=== PATIENT | male | born 1950 | race Caucasian/White ===

== ENCOUNTER 2022-01-27 18:10 | Observation (INO) | payer OTHER ==
[2022-01-27] MEDS ORDERED: VANCOMYCIN 1 GM in D5W (PRE-DOCKED) 1,000 MG/250 ML IVPB ONE (21:31)
[2022-01-27 22:54] LABS: BASO % 1.1 % (0-2.0); EOS % 2.6 % (0-4.5); HEMATOCRIT 46.7 % (35.4-49); HEMOGLOBIN 14.7 GM/dL (11.7-16.9); MCH 30.4 pg (25.7-33.7); MCHC 31.5 g/dl (32.0-35.9); MEAN CELL VOLUME 96.6 fl (80-96); MEAN PLT VOLUME 8.5 fl (7.5-11.1); MONO % 8.9 % (3.8-10.2); NEUT % 72.4 % (42.8-82.8); PLATELET COUNT 215 10^3/uL (134-434); RBC 4.83 M/mm3 (4.00-5.60); RDW 15.8 % (11.9-15.9); WHITE BLOOD COUNT 6.8 K/mm3 (4.0-10.0)
[2022-01-27] MEDS ORDERED: VANCOMYCIN/WATER FOR INJ (PEG) 1,000 MG/200 ML BAG IVPB ONE (23:10)
[2022-01-27 23:15] LABS: CALCIUM 8.9 mg/dL (8.5-10.1)
[2022-01-27 23:16] LABS: ALBUMIN 2.9 g/dl (3.4-5.0); BLOOD UREA NITROGEN 51.1 mg/dL (7-18)
[2022-01-27 23:19] LABS: CREATININE 4.5 mg/dL (0.55-1.3)
[2022-01-27 23:20] LABS: BILIRUBIN,TOTAL 0.6 mg/dL (0.2-1); TOT PROT 7.3 g/dl (6.4-8.2)
[2022-01-28] MEDS ORDERED: PIPERACILLIN/TAZOB 2.25 GM 2.25 GM in DEXTROSE 5%-WATER - 50 ML IVPB ONE (00:06)
[2022-01-28] MEDS ORDERED: PIPERACILLIN/TAZOB 2.25 GM 2.25 GM/50 ML BAG IVPB ONE ×2 (00:28→11:30)
[2022-01-28 08:16] LABS: BASO % 0.8 % (0-2.0); EOS % 4.1 % (0-4.5); HEMATOCRIT 41.3 % (35.4-49); HEMOGLOBIN 12.9 GM/dL (11.7-16.9); LYMPH % 17.3 % (8-40); MCH 30.3 pg (25.7-33.7); MCHC 31.3 g/dl (32.0-35.9); MEAN CELL VOLUME 96.7 fl (80-96); MEAN PLT VOLUME 8.3 fl (7.5-11.1); MONO % 9.2 % (3.8-10.2); NEUT % 68.6 % (42.8-82.8); PLATELET COUNT 205 10^3/uL (134-434); RBC 4.27 M/mm3 (4.00-5.60); RDW 15.4 % (11.9-15.9); WHITE BLOOD COUNT 5.7 K/mm3 (4.0-10.0)
[2022-01-28 08:44] LABS: ALBUMIN 2.3 g/dl (3.4-5.0); BLOOD UREA NITROGEN 53.7 mg/dL (7-18); CALCIUM 8.1 mg/dL (8.5-10.1)
[2022-01-28 08:46] LABS: CREATININE 4.5 mg/dL (0.55-1.3)
[2022-01-28 08:47] LABS: TOT PROT 5.9 g/dl (6.4-8.2)
[2022-01-28 08:48] LABS: BILIRUBIN,TOTAL 0.6 mg/dL (0.2-1)
[2022-01-28] MEDS ORDERED: ARTIFICIAL TEARS (POLYVINYL ALCOHOL) OPTH DROPS OU PRN (10:07)
[2022-01-28] MEDS ORDERED: ACETAMINOPHEN 325 MG TABLET (FP) PO PRN (10:14)
[2022-01-28] MEDS ORDERED: PIPERACILLIN/TAZOB 2.25 GM 2.25 GM in DEXTROSE 5%-WATER - 50 ML IVPB SCH ×2 (10:15→11:00)
[2022-01-28] MEDS ORDERED: oxyCODONE HCL 5 MG TABLET PO PRN (10:16)
[2022-01-28] MEDS ORDERED: SENNOSIDES/DOCUSATE COMBO (SENNA PLUS) TABLET (UD) PO PRN (10:20)
[2022-01-28] MEDS ORDERED: LEVOTHYROXINE NA 125 MCG TABLET (FP) PO ONE (10:22)
[2022-01-28] MEDS ORDERED: APIXABAN 2.5 MG TABLET ONE (11:29)
[2022-01-28] MEDS: AMIODARONE HCL 200 MG TABLET PO SCH (11:30)
[2022-01-28] MEDS ORDERED: AMIODARONE HCL 200 MG TABLET ONE (11:30)
[2022-01-28] MEDS: APIXABAN 2.5 MG TABLET PO SCH ×2 (11:30→21:29)
[2022-01-28] MEDS ORDERED: LEVOTHYROXINE NA 25 MCG TABLET (FP) ONE (11:31)
[2022-01-28] MEDS ORDERED: LEVOTHYROXINE NA 50 MCG TABLET (FP) ONE (11:32)
[2022-01-28] MEDS: INSULIN SLIDING SCALE (NOVOLOG) 1 VIAL SQ SCH ×3 (12:15→21:28)
[2022-01-28] MEDS: COLLAGENASE CLOSTRIDIUM HIST. 30 GRAMS TUBE TP SCH (12:24)
[2022-01-28] MEDS: VITAMIN B COMP W-C 1 EA TABLET (NEPHRO-VITE) PO SCH ×2 (12:24→15:33)
[2022-01-28] MEDS: NYSTATIN 100,000 UNIT/GM TOPICAL CREAM 15 GM TUBE TP SCH ×2 (12:24→21:32)
[2022-01-28] MEDS: MIDODRINE HCL 5 MG TABLET PO SCH ×2 (15:33→17:40)
[2022-01-28] MEDS ORDERED: INSULIN (NOVOLOG) ASPART 100 UNITS/ML 10ML VIAL ONE (17:33)
[2022-01-28] MEDS: PREGABALIN 25 MG CAPSULE PO SCH (21:29)
[2022-01-28] MEDS ORDERED: ZOLPIDEM TARTRATE 5 MG TABLET PO PRN (22:00)
[2022-01-29] MEDS: INSULIN SLIDING SCALE (NOVOLOG) 1 VIAL SQ SCH ×4 (06:28→22:04)
[2022-01-29] MEDS: LEVOTHYROXINE NA 125 MCG TABLET (FP) PO SCH (06:28)
[2022-01-29] MEDS: AMIODARONE HCL 200 MG TABLET PO SCH (14:03)
[2022-01-29] MEDS: VITAMIN B COMP W-C 1 EA TABLET (NEPHRO-VITE) PO SCH (14:03)
[2022-01-29] MEDS: APIXABAN 2.5 MG TABLET PO SCH ×2 (14:03→21:48)
[2022-01-29] MEDS: COLLAGENASE CLOSTRIDIUM HIST. 30 GRAMS TUBE TP SCH (14:04)
[2022-01-29] MEDS: NYSTATIN 100,000 UNIT/GM TOPICAL CREAM 15 GM TUBE TP SCH ×2 (14:04→21:48)
[2022-01-29] MEDS: MIDODRINE HCL 5 MG TABLET PO SCH ×3 (14:04→17:38)
[2022-01-29 16:00] LABS: BASO % 0.8 % (0-2.0); EOS % 2.7 % (0-4.5); HEMATOCRIT 38.9 % (35.4-49); HEMOGLOBIN 12.3 GM/dL (11.7-16.9); LYMPH % 12.9 % (8-40); MCH 30.2 pg (25.7-33.7); MCHC 31.8 g/dl (32.0-35.9); MEAN CELL VOLUME 95.1 fl (80-96); MEAN PLT VOLUME 8.4 fl (7.5-11.1); MONO % 8.8 % (3.8-10.2); NEUT % 74.8 % (42.8-82.8); PLATELET COUNT 198 10^3/uL (134-434); RBC 4.09 M/mm3 (4.00-5.60); RDW 15.8 % (11.9-15.9); WHITE BLOOD COUNT 6.2 K/mm3 (4.0-10.0)
[2022-01-29 17:26] LABS: CALCIUM 8.1 mg/dL (8.5-10.1)
[2022-01-29 17:27] LABS: ALBUMIN 2.3 g/dl (3.4-5.0); MAGNESIUM 2.1 mg/dL (1.8-2.4)
[2022-01-29 17:30] LABS: CREATININE 2.5 mg/dL (0.55-1.3)
[2022-01-29 17:31] LABS: BILIRUBIN,TOTAL 0.5 mg/dL (0.2-1); TOT PROT 5.8 g/dl (6.4-8.2)
[2022-01-29 17:38] LABS: BLOOD UREA NITROGEN 22.7 mg/dL (7-18)
[2022-01-29] MEDS: BISACODYL 5 MG TABLET.DR (FP) PO PRN (17:48)
[2022-01-29] MEDS: BACITRACIN 15 GM TUBE TOPICAL OINTMENT TP SCH (21:48)
[2022-01-29] MEDS: PREGABALIN 25 MG CAPSULE PO SCH (21:48)
[2022-01-30] MEDS: LEVOTHYROXINE NA 125 MCG TABLET (FP) PO SCH (06:26)
[2022-01-30] MEDS: INSULIN SLIDING SCALE (NOVOLOG) 1 VIAL SQ SCH ×4 (06:27→21:15)
[2022-01-30] MEDS: APIXABAN 2.5 MG TABLET PO SCH ×2 (09:34→21:06)
[2022-01-30] MEDS: MIDODRINE HCL 5 MG TABLET PO SCH ×3 (09:34→18:21)
[2022-01-30] MEDS: VITAMIN B COMP W-C 1 EA TABLET (NEPHRO-VITE) PO SCH (09:34)
[2022-01-30] MEDS: COLLAGENASE CLOSTRIDIUM HIST. 30 GRAMS TUBE TP SCH (09:35)
[2022-01-30] MEDS: BACITRACIN 15 GM TUBE TOPICAL OINTMENT TP SCH ×2 (09:35→21:16)
[2022-01-30] MEDS: NYSTATIN 100,000 UNIT/GM TOPICAL CREAM 15 GM TUBE TP SCH ×2 (09:35→21:16)
[2022-01-30] MEDS: AMIODARONE HCL 200 MG TABLET PO SCH (09:35)
[2022-01-30 09:58] LABS: EOS % 5.4 % (0-4.5); HEMATOCRIT 39.5 % (35.4-49); HEMOGLOBIN 12.8 GM/dL (11.7-16.9); LYMPH % 19.2 % (8-40); MCHC 32.5 g/dl (32.0-35.9); MEAN CELL VOLUME 95.3 fl (80-96); NEUT % 64.4 % (42.8-82.8); PLATELET COUNT 192 10^3/uL (134-434); RBC 4.14 M/mm3 (4.00-5.60); RDW 15.9 % (11.9-15.9); WHITE BLOOD COUNT 5.1 K/mm3 (4.0-10.0)
[2022-01-30 10:21] LABS: ALBUMIN 2.2 g/dl (3.4-5.0); BLOOD UREA NITROGEN 28.1 mg/dL (7-18); CALCIUM 8.3 mg/dL (8.5-10.1); MAGNESIUM 2.1 mg/dL (1.8-2.4)
[2022-01-30 10:25] LABS: CREATININE 3.3 mg/dL (0.55-1.3)
[2022-01-30 10:26] LABS: BILIRUBIN,TOTAL 0.4 mg/dL (0.2-1); TOT PROT 5.8 g/dl (6.4-8.2)
[2022-01-30] MEDS ORDERED: INSULIN (NOVOLOG) ASPART 100 UNITS/ML 10ML VIAL ONE ×2 (11:22→21:09)
[2022-01-30] MEDS ORDERED: SODIUM CHLORIDE 250 ML IV PRN ×2 (12:47→12:52)
[2022-01-30] MEDS: PREGABALIN 25 MG CAPSULE PO SCH (21:06)
[2022-01-31] MEDS: LEVOTHYROXINE NA 125 MCG TABLET (FP) PO SCH (06:19)
[2022-01-31] MEDS: INSULIN SLIDING SCALE (NOVOLOG) 1 VIAL SQ SCH ×4 (06:23→22:11)
[2022-01-31] MEDS ORDERED: SODIUM CHLORIDE 250 ML IV PRN (08:20)
[2022-01-31] MEDS ORDERED: EPOETIN ALFA-EPBX 10,000 UNIT/ML VIAL IVPUSH ONE (09:00)
[2022-01-31] MEDS: BACITRACIN 15 GM TUBE TOPICAL OINTMENT TP SCH ×2 (09:38→22:09)
[2022-01-31] MEDS: VITAMIN B COMP W-C 1 EA TABLET (NEPHRO-VITE) PO SCH (09:39)
[2022-01-31] MEDS: APIXABAN 2.5 MG TABLET PO SCH ×2 (09:39→22:09)
[2022-01-31] MEDS: NYSTATIN 100,000 UNIT/GM TOPICAL CREAM 15 GM TUBE TP SCH ×2 (09:39→22:09)
[2022-01-31] MEDS: AMIODARONE HCL 200 MG TABLET PO SCH (09:39)
[2022-01-31] MEDS: MIDODRINE HCL 5 MG TABLET PO SCH ×3 (09:40→19:31)
[2022-01-31] MEDS: COLLAGENASE CLOSTRIDIUM HIST. 30 GRAMS TUBE TP SCH (09:40)
[2022-01-31 10:03] LABS: CREATININE 3.7 mg/dL (0.55-1.3)
[2022-01-31 10:04] LABS: ALBUMIN 2.2 g/dl (3.4-5.0)
[2022-01-31 10:05] LABS: BILIRUBIN,TOTAL 0.6 mg/dL (0.2-1); BLOOD UREA NITROGEN 33.5 mg/dL (7-18); TOT PROT 5.6 g/dl (6.4-8.2)
[2022-01-31 10:07] LABS: CALCIUM 8.4 mg/dL (8.5-10.1)
[2022-01-31 10:46] LABS: BASO % 0.6 % (0-2.0); HEMATOCRIT 36.6 % (35.4-49); HEMOGLOBIN 11.6 GM/dL (11.7-16.9); LYMPH % 11.9 % (8-40); MCH 30.2 pg (25.7-33.7); MCHC 31.7 g/dl (32.0-35.9); MEAN CELL VOLUME 95.5 fl (80-96); MEAN PLT VOLUME 8.5 fl (7.5-11.1); MONO % 9.3 % (3.8-10.2); NEUT % 74.2 % (42.8-82.8); PLATELET COUNT 202 10^3/uL (134-434); RBC 3.84 M/mm3 (4.00-5.60); RDW 15.2 % (11.9-15.9); WHITE BLOOD COUNT 6.3 K/mm3 (4.0-10.0)
[2022-01-31 11:06] LABS: CALCIUM 8.1 mg/dL (8.5-10.1)
[2022-01-31 11:08] LABS: BLOOD UREA NITROGEN 34.1 mg/dL (7-18)
[2022-01-31 11:11] LABS: CREATININE 3.6 mg/dL (0.55-1.3); PHOSPHOROUS 3.5 mg/dL (2.5-4.9)
[2022-01-31] MEDS: ALBUMIN HUMAN 25% 12.5 GM/50 ML VIAL IV SCH ×2 (12:33→13:55)
[2022-01-31 14:49] VITALS: BMI 36.5
[2022-01-31] MEDS: BISACODYL 5 MG TABLET.DR (FP) PO PRN (19:52)
[2022-01-31] MEDS: PREGABALIN 25 MG CAPSULE PO SCH (22:09)
[2022-02-01] MEDS: INSULIN SLIDING SCALE (NOVOLOG) 1 VIAL SQ SCH ×4 (06:54→21:22)
[2022-02-01] MEDS: LEVOTHYROXINE NA 125 MCG TABLET (FP) PO SCH (06:54)
[2022-02-01 09:44] LABS: BASO % 0.9 % (0-2.0); EOS % 4.7 % (0-4.5); HEMATOCRIT 37.6 % (35.4-49); LYMPH % 18.5 % (8-40); MCH 30.4 pg (25.7-33.7); MCHC 31.8 g/dl (32.0-35.9); MEAN CELL VOLUME 95.5 fl (80-96); MONO % 9.6 % (3.8-10.2); NEUT % 66.3 % (42.8-82.8); PLATELET COUNT 195 10^3/uL (134-434); RBC 3.94 M/mm3 (4.00-5.60); RDW 15.4 % (11.9-15.9); WHITE BLOOD COUNT 5.3 K/mm3 (4.0-10.0)
[2022-02-01 09:57] LABS: BLOOD UREA NITROGEN 16.9 mg/dL (7-18); CALCIUM 8.2 mg/dL (8.5-10.1)
[2022-02-01 09:58] LABS: ALBUMIN 2.2 g/dl (3.4-5.0)
[2022-02-01 10:01] LABS: CREATININE 2.8 mg/dL (0.55-1.3)
[2022-02-01 10:02] LABS: BILIRUBIN,TOTAL 0.6 mg/dL (0.2-1); TOT PROT 5.7 g/dl (6.4-8.2)
[2022-02-01] MEDS: NYSTATIN 100,000 UNIT/GM TOPICAL CREAM 15 GM TUBE TP SCH ×2 (10:10→21:17)
[2022-02-01] MEDS: BACITRACIN 15 GM TUBE TOPICAL OINTMENT TP SCH ×2 (10:10→21:16)
[2022-02-01] MEDS: APIXABAN 2.5 MG TABLET PO SCH ×2 (10:10→21:16)
[2022-02-01] MEDS: VITAMIN B COMP W-C 1 EA TABLET (NEPHRO-VITE) PO SCH (10:10)
[2022-02-01] MEDS: AMIODARONE HCL 200 MG TABLET PO SCH (10:10)
[2022-02-01] MEDS: COLLAGENASE CLOSTRIDIUM HIST. 30 GRAMS TUBE TP SCH (10:11)
[2022-02-01] MEDS: MIDODRINE HCL 5 MG TABLET PO SCH ×3 (10:11→17:47)
[2022-02-01] MEDS ORDERED: INSULIN (NOVOLOG) ASPART 100 UNITS/ML 10ML VIAL ONE (11:46)
[2022-02-01] MEDS ORDERED: POLYETHYLENE GLYCOL (HEALTHYLAX) 3350 17 GM PACKET PO ONE (12:15)
[2022-02-01] MEDS ORDERED: BISACODYL 10 MG SUPP.RECT PR ONE (12:30)
[2022-02-01] MEDS ORDERED: MINERAL OIL ENEMA 133 ML ENEMA RC ONE (13:45)
[2022-02-01] MEDS: INSULIN (LEVEMIR) 100 UNITS/ML UNITS SQ SCH (21:16)
[2022-02-01] MEDS: PREGABALIN 25 MG CAPSULE PO SCH (21:16)
[2022-02-02] MEDS: LEVOTHYROXINE NA 125 MCG TABLET (FP) PO SCH (06:02)
[2022-02-02] MEDS: INSULIN SLIDING SCALE (NOVOLOG) 1 VIAL SQ SCH ×4 (06:05→21:29)
[2022-02-02] MEDS ORDERED: INSULIN (LEVEMIR) 100 UNITS/ML UNITS SQ ONE (06:25)
[2022-02-02] MEDS: APIXABAN 2.5 MG TABLET PO SCH ×2 (09:57→21:23)
[2022-02-02] MEDS: VITAMIN B COMP W-C 1 EA TABLET (NEPHRO-VITE) PO SCH (09:57)
[2022-02-02] MEDS: MIDODRINE HCL 5 MG TABLET PO SCH ×3 (09:57→17:28)
[2022-02-02] MEDS: AMIODARONE HCL 200 MG TABLET PO SCH (09:57)
[2022-02-02] MEDS: BACITRACIN 15 GM TUBE TOPICAL OINTMENT TP SCH ×2 (09:58→21:24)
[2022-02-02] MEDS: COLLAGENASE CLOSTRIDIUM HIST. 30 GRAMS TUBE TP SCH (09:58)
[2022-02-02] MEDS: NYSTATIN 100,000 UNIT/GM TOPICAL CREAM 15 GM TUBE TP SCH ×2 (09:58→21:24)
[2022-02-02 11:12] LABS: BASO % 0.7 % (0-2.0); HEMATOCRIT 40.3 % (35.4-49); HEMOGLOBIN 12.6 GM/dL (11.7-16.9); LYMPH % 14.8 % (8-40); MCH 30.1 pg (25.7-33.7); MCHC 31.2 g/dl (32.0-35.9); MEAN CELL VOLUME 96.3 fl (80-96); MEAN PLT VOLUME 8.3 fl (7.5-11.1); MONO % 9.1 % (3.8-10.2); NEUT % 70.4 % (42.8-82.8); PLATELET COUNT 194 10^3/uL (134-434); RBC 4.19 M/mm3 (4.00-5.60); RDW 15.5 % (11.9-15.9); WHITE BLOOD COUNT 5.9 K/mm3 (4.0-10.0)
[2022-02-02 11:37] LABS: CALCIUM 8.6 mg/dL (8.5-10.1)
[2022-02-02 11:38] LABS: ALBUMIN 2.2 g/dl (3.4-5.0); BLOOD UREA NITROGEN 21.2 mg/dL (7-18)
[2022-02-02 11:41] LABS: CREATININE 3.3 mg/dL (0.55-1.3)
[2022-02-02 11:43] LABS: BILIRUBIN,TOTAL 0.4 mg/dL (0.2-1); TOT PROT 5.6 g/dl (6.4-8.2)
[2022-02-02] MEDS ORDERED: INSULIN (NOVOLOG) ASPART 100 UNITS/ML 10ML VIAL ONE (14:40)
[2022-02-02] MEDS ORDERED: SODIUM CHLORIDE 250 ML IV PRN (14:44)
[2022-02-02] MEDS: PREGABALIN 25 MG CAPSULE PO SCH (21:23)
[2022-02-02] MEDS: INSULIN (LEVEMIR) 100 UNITS/ML UNITS SQ SCH (21:23)
[2022-02-03] MEDS: LEVOTHYROXINE NA 125 MCG TABLET (FP) PO SCH (06:53)
[2022-02-03] MEDS: INSULIN SLIDING SCALE (NOVOLOG) 1 VIAL SQ SCH ×3 (06:56→17:02)
[2022-02-03] MEDS: AMIODARONE HCL 200 MG TABLET PO SCH (09:23)
[2022-02-03] MEDS: APIXABAN 2.5 MG TABLET PO SCH (09:25)
[2022-02-03] MEDS: BACITRACIN 15 GM TUBE TOPICAL OINTMENT TP SCH (09:25)
[2022-02-03] MEDS: MIDODRINE HCL 5 MG TABLET PO SCH ×3 (09:25→17:07)
[2022-02-03] MEDS: VITAMIN B COMP W-C 1 EA TABLET (NEPHRO-VITE) PO SCH (09:25)
[2022-02-03] MEDS: COLLAGENASE CLOSTRIDIUM HIST. 30 GRAMS TUBE TP SCH (09:26)
[2022-02-03] MEDS: NYSTATIN 100,000 UNIT/GM TOPICAL CREAM 15 GM TUBE TP SCH (09:26)
[2022-02-03 11:45] LABS: EOS % 4.2 % (0-4.5); HEMATOCRIT 39.3 % (35.4-49); HEMOGLOBIN 12.2 GM/dL (11.7-16.9); LYMPH % 14.7 % (8-40); MCH 29.9 pg (25.7-33.7); MEAN CELL VOLUME 96.3 fl (80-96); MEAN PLT VOLUME 8.3 fl (7.5-11.1); MONO % 8.9 % (3.8-10.2); NEUT % 71.2 % (42.8-82.8); PLATELET COUNT 209 10^3/uL (134-434); RBC 4.08 M/mm3 (4.00-5.60); RDW 15.5 % (11.9-15.9); WHITE BLOOD COUNT 6.3 K/mm3 (4.0-10.0)
[2022-02-03 12:30] LABS: BLOOD UREA NITROGEN 29.6 mg/dL (7-18); CALCIUM 8.3 mg/dL (8.5-10.1)
[2022-02-03 12:31] LABS: MAGNESIUM 1.9 mg/dL (1.8-2.4)
[2022-02-03 12:33] LABS: CREATININE 3.9 mg/dL (0.55-1.3)
[2022-02-03 12:34] LABS: TOT PROT 5.3 g/dl (6.4-8.2)
[2022-02-03 12:38] LABS: BILIRUBIN,TOTAL 0.5 mg/dL (0.2-1)
[2022-02-03 17:10] VITALS: BP 126/68; PULSE 77; RESP 20
[2022-02-03 18:46] VITALS: TEMP 97.8
== END 2022-02-03 19:04 ==
LOC: JER 18:10 → JERBED 01-28 00:19 → INTOOBSV 01-28 00:19 → UNDOADMOB 01-28 00:19 → JERBED 01-28 13:24 → J8W 01-28 13:24
PROVIDERS: ADMIT Internal Medicine; ATTEND Nurse Practitioner Family
PROC: 3E033GC Introduction of Other Therapeutic Substance into Peripheral Vein, Percutaneous Approach (ICD-10-PCS; principal; 2022-01-29)
PROC: 3E013VG Introduction of Insulin into Subcutaneous Tissue, Percutaneous Approach (ICD-10-PCS; 2022-01-29)
PROC: 3E013VG Introduction of Insulin into Subcutaneous Tissue, Percutaneous Approach (ICD-10-PCS; 2022-01-29)
PROC: 3E03329 Introduction of Other Anti-infective into Peripheral Vein, Percutaneous Approach (ICD-10-PCS; 2022-01-29)
DX: L03.116 Cellulitis of left lower limb (principal); L03.115 Cellulitis of right lower limb; S91.302A Unspecified open wound, left foot, initial encounter; S91.301A Unspecified open wound, right foot, initial encounter; B35.4 Tinea corporis; I13.0 Hypertensive heart and chronic kidney disease with heart failure and stage 1 through stage 4 chronic kidney disease, or unspecified chronic kidney disease; N18.9 Chronic kidney disease, unspecified; E03.9 Hypothyroidism, unspecified; E11.40 Type 2 diabetes mellitus with diabetic neuropathy, unspecified; I48.91 Unspecified atrial fibrillation; Z79.01 Long term (current) use of anticoagulants; E11.22 Type 2 diabetes mellitus with diabetic chronic kidney disease; N18.6 End stage renal disease; Z99.2 Dependence on renal dialysis; Z88.8 Allergy status to other drugs, medicaments and biological substances; E66.8 Other obesity; Z68.36 Body mass index [BMI] 36.0-36.9, adult; K59.00 Constipation, unspecified; G47.30 Sleep apnea, unspecified; K72.90 Hepatic failure, unspecified without coma; Y82.8 Other medical devices associated with adverse incidents
CPT/HCPCS: 0241U-QW; 36415; 71045-TC-FY; 80048; 80053; 82306; 82607; 82962; 83036; 83735; 84100; 85025; 86803; 87340; 93005; 93010; 94660; 96365; 96366; 96372; 96375; 97116-GP; 97161-GP; 99285-25; C9803-CS; E0186; G0378; Q5106; U0003; U0005